=== PATIENT | female | born 1935 | race Caucasian/White ===

== ENCOUNTER 2020-07-31 05:16 | Inpatient (IN) | payer OTHER, MEDICAID, SELFPAY ==
[~2020-07-31] VITALS: Ht 170.2 cm; Wt 58.7 kg
[2020-07-31] VITALS (7 sets, daily range): BP systolic 122–180
[2020-07-31] MEDS ORDERED: VANCOMYCIN HCL 1,000 MG in D5W 250 ML IV ONE (05:45)
[2020-07-31] MEDS ORDERED: NS 1000 ML IV.SOLN IV ONE (05:45)
[2020-07-31] MEDS ORDERED: PIPERACILLIN/TAZO 3.38 GM in D5W 50 ML IV ONE (05:45)
[2020-07-31] MEDS ORDERED: ONDANSETRON HCL 4 MG/2 ML VIAL IVP ONE (05:45)
[2020-07-31] MEDS ORDERED: fentaNYL CITRATE/PF 100 MCG/2 ML AMP IVP ONE (05:45)
[2020-07-31] MEDS ORDERED: PIPERACILLIN/TAZOBACTAM 3.375 GM/VIAL (ZOSYN) IV ONE (05:46)
[2020-07-31] MEDS ORDERED: VANCOMYCIN HCL 1000 MG/VIAL IV ONE (05:46)
[2020-07-31 05:50] LABS: BILIRUBIN,URINE NEGATIVE (NEGATIVE); BLOOD, URINE NEGATIVE (NEGATIVE); CLARITY/URINE CLEAR (CLEAR); COLOR,URINE YELLOW (YELLOW); GLUCOSE,URINE NEGATIVE (NEGATIVE); KETONES,URINE NEGATIVE (NEGATIVE); LEUKOCYTE ESTERASE ,URINE NEGATIVE (NEGATIVE); NITRITE, URINE NEGATIVE (NEGATIVE); PROTEIN URINE 1+ (NEGATIVE); UROBILINOGEN,URINE 0.2 (0.2-1.0)
[2020-07-31 05:58] LABS: ANION GAP 5 (5-15); BASOPHILS % (AUTO) 0.4 % (0.0-2.0); CALCIUM 7.8 mg/dL (8.4-11.0); CHLORIDE 105 mmol/L (98-107); CREATININE 1.35 mg/dL (0.55-1.30); EOSINOPHILS # (AUTO) 0.3 K/uL (0.0-0.4); EOSINOPHILS % (AUTO) 3.9 % (0.0-4.0); GLUCOSE 280 mg/dL (70-99); HEMATOCRIT 38.1 % (36-48); HEMOGLOBIN 12.4 g/dL (12.0-16.0); LYMPHOCYTES # (AUTO) 0.9 K/uL (1.0-5.5); LYMPHOCYTES % (AUTO) 11.3 % (20.5-51.5); MEAN CORPUSCULAR HEMOGLOBIN 31 pg (27-31); MEAN CORPUSCULAR HGB CONC 33 % (32-36); MEAN CORPUSCULAR VOLUME 94 fL (79.0-98.0); MONOCYTES # (AUTO) 0.7 K/uL (0.0-1.0); MONOCYTES % (AUTO) 8.4 % (1.7-9.3); NEUTROPHILS # (AUTO) 6.3 K/uL (1.8-7.7); PLATELET COUNT (AUTO) 126 K/uL (130-430); POTASSIUM 4.8 mmol/L (3.5-5.1); RED BLOOD CELL COUNT(AUTO) 4.04 MIL/uL (4.2-6.2); RED CELL DISTRIBUTION WIDTH 14.8 % (9.0-15.0); SODIUM SERUM 141 mmol/L (136-145); UREA NITROGEN, BLOOD 39 mg/dL (8-21); WHITE BLOOD COUNT (AUTO) 8.3 K/uL (4.8-10.8)
[2020-07-31 05:58] LABS: BACTERIA,URINE FEW /HPF (None Seen); RBC,URINE 0-3 /HPF (0-3); WBC,URINE 0-3 /HPF (0-3)
[2020-07-31 06:04] LABS: ALANINE AMINOTRANSFERASE 24 U/L (12-78); ALBUMIN 2.8 g/dL (3.4-4.8); ASPARTATE AMINOTRANSFERASE 23 U/L (10-37); TOTAL BILIRUBIN 0.5 mg/dL (0.0-1.0)
[2020-07-31 06:05] LABS: INR 1.2 (0.8-1.2); PROTHROMBIN TIME 12.5 SECS (9.5-12.5)
[2020-07-31] MEDS ORDERED: NS 500 ML IV ONE (06:45)
[2020-07-31] MEDS ORDERED: FUROSEMIDE 40 MG/4 ML VIAL IVP ONE (07:15)
[2020-07-31] MEDS ORDERED: DIGO125T PO (11:06)
[2020-07-31] MEDS ORDERED: CARV25TA55 PO (11:06)
[2020-07-31] MEDS ORDERED: BENA20TA75 PO (11:06)
[2020-07-31] MEDS ORDERED: FURO-150 PO (11:06)
[2020-07-31] MEDS ORDERED: SER25 PO (11:06)
[2020-07-31] MEDS ORDERED: DEXTROSE 50% JECT 50 ML DISP.SYRIN IVP PRN (11:15)
[2020-07-31] MEDS ORDERED: IPRATROPIUM BROM 0.5 MG/2.5 ML VIAL.NEB (ATROVENT) INH PRN (11:30)
[2020-07-31] MEDS ORDERED: ALBUTEROL SULFATE 0.083% 2.5 MG/3 ML VIAL.NEB INH PRN (11:30)
[2020-07-31 11:49] LABS: THYROID STIMULATING HORMONE 0.93 uIu/mL (0.36-3.74)
[2020-07-31] MEDS: FUROSEMIDE 40 MG/4 ML VIAL IVP SCH (14:03)
[2020-07-31] MEDS: IPRATROPIUM BROM 0.5 MG/2.5 ML VIAL.NEB (ATROVENT) INH SCH ×3 (15:44→23:36)
[2020-07-31] MEDS: ALBUTEROL SULFATE 0.083% 2.5 MG/3 ML VIAL.NEB INH SCH ×3 (15:44→23:36)
[2020-07-31] MEDS ORDERED: DIVA-74 PO ×2 (16:01)
[2020-07-31] MEDS ORDERED: ALPR1TAB2 PO (16:02)
[2020-07-31] MEDS: INSULIN REGULAR, HUMAN 100 UNITS/ML, 10 ML VIAL (humuLIN R) SUBCUT PRN (17:24)
[2020-07-31] MEDS ORDERED: QUEtiapine FUMARATE 25 MG TABLET PO SCH (21:00)
[2020-07-31] MEDS: CARVEDILOL 25 MG TABLET (COREG) PO SCH (22:00)
[2020-07-31] MEDS: QUEtiapine FUMARATE 100 MG TABLET PO SCH (22:00)
[2020-07-31] MEDS: DIVALPROEX SODIUM 500 MG TABLET( DEPAKOTE) PO SCH (22:00)
[2020-08-01 00:10] VITALS: BP_SYST 122
[2020-08-01] MEDS: INSULIN REGULAR, HUMAN 100 UNITS/ML, 10 ML VIAL (humuLIN R) SUBCUT PRN ×3 (00:13→13:22)
[2020-08-01] MEDS: IPRATROPIUM BROM 0.5 MG/2.5 ML VIAL.NEB (ATROVENT) INH SCH ×6 (03:00→22:44)
[2020-08-01] MEDS: ALBUTEROL SULFATE 0.083% 2.5 MG/3 ML VIAL.NEB INH SCH ×6 (03:00→22:44)
[2020-08-01 06:31] LABS: BASOPHILS % (AUTO) 0.4 % (0.0-2.0); EOSINOPHILS # (AUTO) 0.3 K/uL (0.0-0.4); EOSINOPHILS % (AUTO) 4.1 % (0.0-4.0); HEMATOCRIT 34.5 % (36-48); HEMOGLOBIN 11.4 g/dL (12.0-16.0); LYMPHOCYTES # (AUTO) 1.8 K/uL (1.0-5.5); LYMPHOCYTES % (AUTO) 29.4 % (20.5-51.5); MEAN CORPUSCULAR HEMOGLOBIN 31 pg (27-31); MEAN CORPUSCULAR HGB CONC 33 % (32-36); MEAN CORPUSCULAR VOLUME 94 fL (79.0-98.0); MONOCYTES # (AUTO) 0.6 K/uL (0.0-1.0); MONOCYTES % (AUTO) 9.7 % (1.7-9.3); NEUTROPHILS # (AUTO) 3.5 K/uL (1.8-7.7); NEUTROPHILS % (AUTO) 56.4 % (40.0-70.0); PLATELET COUNT (AUTO) 115 K/uL (130-430); RED BLOOD CELL COUNT(AUTO) 3.67 MIL/uL (4.2-6.2); WHITE BLOOD COUNT (AUTO) 6.3 K/uL (4.8-10.8)
[2020-08-01 07:43] LABS: ALANINE AMINOTRANSFERASE 25 U/L (12-78); ALBUMIN 2.7 g/dL (3.4-4.8); ANION GAP 6 (5-15); ASPARTATE AMINOTRANSFERASE 21 U/L (10-37); CALCIUM 7.8 mg/dL (8.4-11.0); CHLORIDE 107 mmol/L (98-107); CREATININE 1.55 mg/dL (0.55-1.30); GLUCOSE 87 mg/dL (70-99); POTASSIUM 4.7 mmol/L (3.5-5.1); SODIUM SERUM 145 mmol/L (136-145); TOTAL BILIRUBIN 0.4 mg/dL (0.0-1.0); UREA NITROGEN, BLOOD 39 mg/dL (8-21)
[2020-08-01 08:34] VITALS: BP_SYST 139
[2020-08-01] MEDS: DIVALPROEX SODIUM 500 MG TABLET( DEPAKOTE) PO SCH ×2 (08:50→20:42)
[2020-08-01] MEDS: lisinopriL 20 MG TABLET PO SCH (08:50)
[2020-08-01] MEDS: CARVEDILOL 25 MG TABLET (COREG) PO SCH ×2 (08:50→20:43)
[2020-08-01] MEDS: DIGOXIN 0.125 MG TABLET PO SCH (08:51)
[2020-08-01] MEDS: QUEtiapine FUMARATE 25 MG TABLET PO SCH (08:51)
[2020-08-01 08:53] LABS: VALPROIC ACID 30 ug/mL (50-100)
[2020-08-01] MEDS: FUROSEMIDE 40 MG/4 ML VIAL IVP SCH ×2 (08:54→13:23)
[2020-08-01 12:18] VITALS: BP_SYST 136
[2020-08-01 16:20] VITALS: BP_SYST 139
[2020-08-01] MEDS ORDERED: LORazepam 2 MG/ML VIAL ONE (16:20)
[2020-08-01] MEDS: LORazepam 2 MG/ML VIAL IVP PRN ×2 (16:20→22:50)
[2020-08-01 20:40] VITALS: BP_SYST 146
[2020-08-01] MEDS: QUEtiapine FUMARATE 100 MG TABLET PO SCH (20:42)
[2020-08-02 02:00] VITALS: BP_SYST 136
[2020-08-02] MEDS: IPRATROPIUM BROM 0.5 MG/2.5 ML VIAL.NEB (ATROVENT) INH SCH ×6 (03:00→23:00)
[2020-08-02] MEDS: ALBUTEROL SULFATE 0.083% 2.5 MG/3 ML VIAL.NEB INH SCH ×6 (03:00→23:00)
[2020-08-02 04:25] VITALS: BP_SYST 141
[2020-08-02 08:00] VITALS: BP_SYST 123
[2020-08-02] MEDS: FUROSEMIDE 40 MG/4 ML VIAL IVP SCH ×2 (08:20→12:24)
[2020-08-02] MEDS: CARVEDILOL 25 MG TABLET (COREG) PO SCH ×2 (08:21→22:30)
[2020-08-02] MEDS: DIVALPROEX SODIUM 500 MG TABLET( DEPAKOTE) PO SCH ×2 (08:22→22:26)
[2020-08-02] MEDS: QUEtiapine FUMARATE 25 MG TABLET PO SCH (08:22)
[2020-08-02] MEDS: lisinopriL 20 MG TABLET PO SCH (08:22)
[2020-08-02] MEDS: DIGOXIN 0.125 MG TABLET PO SCH ×2 (08:23→12:25)
[2020-08-02 12:14] VITALS: BP_SYST 141
[2020-08-02] MEDS: INSULIN REGULAR, HUMAN 100 UNITS/ML, 10 ML VIAL (humuLIN R) SUBCUT PRN (12:30)
[2020-08-02 12:33] LABS: CALCIUM 7.8 mg/dL (8.4-11.0); CHLORIDE 106 mmol/L (98-107); CREATININE 1.27 mg/dL (0.55-1.30); GLUCOSE 214 mg/dL (70-99); POTASSIUM 5.2 mmol/L (3.5-5.1); SODIUM SERUM 143 mmol/L (136-145); UREA NITROGEN, BLOOD 43 mg/dL (8-21)
[2020-08-02 12:40] LABS: ANION GAP 3 (5-15)
[2020-08-02 16:15] VITALS: BP_SYST 151
[2020-08-02 20:00] VITALS: BP_SYST 146
[2020-08-02] MEDS: QUEtiapine FUMARATE 100 MG TABLET PO SCH (22:26)
[2020-08-03 00:16] VITALS: BP_SYST 151
[2020-08-03] MEDS: INSULIN REGULAR, HUMAN 100 UNITS/ML, 10 ML VIAL (humuLIN R) SUBCUT PRN (00:53)
[2020-08-03] MEDS: ALBUTEROL SULFATE 0.083% 2.5 MG/3 ML VIAL.NEB INH SCH ×6 (03:00→23:00)
[2020-08-03] MEDS: IPRATROPIUM BROM 0.5 MG/2.5 ML VIAL.NEB (ATROVENT) INH SCH ×6 (03:00→23:00)
[2020-08-03 06:03] LABS: BASOPHILS % (AUTO) 0.4 % (0.0-2.0); EOSINOPHILS # (AUTO) 0.3 K/uL (0.0-0.4); EOSINOPHILS % (AUTO) 4.8 % (0.0-4.0); HEMATOCRIT 35.7 % (36-48); HEMOGLOBIN 11.7 g/dL (12.0-16.0); LYMPHOCYTES # (AUTO) 1.4 K/uL (1.0-5.5); LYMPHOCYTES % (AUTO) 19.1 % (20.5-51.5); MEAN CORPUSCULAR HEMOGLOBIN 31 pg (27-31); MEAN CORPUSCULAR HGB CONC 33 % (32-36); MEAN CORPUSCULAR VOLUME 94 fL (79.0-98.0); MONOCYTES # (AUTO) 0.6 K/uL (0.0-1.0); MONOCYTES % (AUTO) 8.6 % (1.7-9.3); NEUTROPHILS # (AUTO) 4.9 K/uL (1.8-7.7); NEUTROPHILS % (AUTO) 67.1 % (40.0-70.0); PLATELET COUNT (AUTO) 136 K/uL (130-430); RED BLOOD CELL COUNT(AUTO) 3.79 MIL/uL (4.2-6.2); RED CELL DISTRIBUTION WIDTH 14.4 % (9.0-15.0); WHITE BLOOD COUNT (AUTO) 7.3 K/uL (4.8-10.8)
[2020-08-03 06:24] LABS: ALANINE AMINOTRANSFERASE 20 U/L (12-78); ALBUMIN 2.4 g/dL (3.4-4.8); ANION GAP 2 (5-15); ASPARTATE AMINOTRANSFERASE 21 U/L (10-37); CHLORIDE 106 mmol/L (98-107); CREATININE 1.31 mg/dL (0.55-1.30); GLUCOSE 114 mg/dL (70-99); POTASSIUM 4.7 mmol/L (3.5-5.1); SODIUM SERUM 145 mmol/L (136-145); TOTAL BILIRUBIN 0.4 mg/dL (0.0-1.0); UREA NITROGEN, BLOOD 43 mg/dL (8-21)
[2020-08-03 08:00] VITALS: BP_SYST 133
[2020-08-03] MEDS: FUROSEMIDE 40 MG/4 ML VIAL IVP SCH ×2 (09:02→12:25)
[2020-08-03] MEDS: QUEtiapine FUMARATE 25 MG TABLET PO SCH (09:03)
[2020-08-03] MEDS: CARVEDILOL 25 MG TABLET (COREG) PO SCH ×2 (09:03→21:28)
[2020-08-03] MEDS: DIGOXIN 0.125 MG TABLET PO SCH (09:03)
[2020-08-03] MEDS: lisinopriL 20 MG TABLET PO SCH (09:04)
[2020-08-03] MEDS: DIVALPROEX SODIUM 500 MG TABLET( DEPAKOTE) PO SCH ×2 (09:04→21:24)
[2020-08-03] MEDS: LORazepam 2 MG/ML VIAL IVP PRN ×2 (10:12→16:11)
[2020-08-03 12:28] VITALS: BP_SYST 150
[2020-08-03 16:12] VITALS: BP_SYST 148
[2020-08-03 20:00] VITALS: BP_SYST 158
[2020-08-03] MEDS: QUEtiapine FUMARATE 100 MG TABLET PO SCH (21:24)
[2020-08-03] MEDS: ALPRAZolam 0.25 MG TABLET PO SCH (21:24)
[2020-08-04] VITALS: BP_SYST 146
[2020-08-04] MEDS: IPRATROPIUM BROM 0.5 MG/2.5 ML VIAL.NEB (ATROVENT) INH SCH ×5 (03:00→19:55)
[2020-08-04] MEDS: ALBUTEROL SULFATE 0.083% 2.5 MG/3 ML VIAL.NEB INH SCH ×5 (03:00→19:55)
[2020-08-04 06:09] LABS: ALANINE AMINOTRANSFERASE 23 U/L (12-78); ALBUMIN 2.2 g/dL (3.4-4.8); ASPARTATE AMINOTRANSFERASE 20 U/L (10-37); CALCIUM 8.1 mg/dL (8.4-11.0); CHLORIDE 107 mmol/L (98-107); CREATININE 1.25 mg/dL (0.55-1.30); GLUCOSE 126 mg/dL (70-99); POTASSIUM 4.6 mmol/L (3.5-5.1); SODIUM SERUM 146 mmol/L (136-145); TOTAL BILIRUBIN 0.4 mg/dL (0.0-1.0); UREA NITROGEN, BLOOD 46 mg/dL (8-21)
[2020-08-04 06:25] LABS: ANION GAP < 3 (5-15)
[2020-08-04 06:37] LABS: BASOPHILS % (AUTO) 0.6 % (0.0-2.0); EOSINOPHILS # (AUTO) 0.2 K/uL (0.0-0.4); EOSINOPHILS % (AUTO) 4.1 % (0.0-4.0); HEMATOCRIT 35.6 % (36-48); HEMOGLOBIN 11.7 g/dL (12.0-16.0); LYMPHOCYTES # (AUTO) 1.4 K/uL (1.0-5.5); LYMPHOCYTES % (AUTO) 23.5 % (20.5-51.5); MEAN CORPUSCULAR HEMOGLOBIN 31 pg (27-31); MEAN CORPUSCULAR HGB CONC 33 % (32-36); MEAN CORPUSCULAR VOLUME 94 fL (79.0-98.0); MONOCYTES # (AUTO) 0.5 K/uL (0.0-1.0); MONOCYTES % (AUTO) 9.2 % (1.7-9.3); NEUTROPHILS # (AUTO) 3.7 K/uL (1.8-7.7); NEUTROPHILS % (AUTO) 62.6 % (40.0-70.0); PLATELET COUNT (AUTO) 125 K/uL (130-430); RED CELL DISTRIBUTION WIDTH 14.5 % (9.0-15.0); WHITE BLOOD COUNT (AUTO) 5.9 K/uL (4.8-10.8)
[2020-08-04 08:00] VITALS: BP_SYST 162
[2020-08-04] MEDS: FUROSEMIDE 40 MG/4 ML VIAL IVP SCH ×2 (09:12→12:21)
[2020-08-04] MEDS: CARVEDILOL 25 MG TABLET (COREG) PO SCH ×2 (09:13→20:22)
[2020-08-04] MEDS: DIVALPROEX SODIUM 500 MG TABLET( DEPAKOTE) PO SCH ×2 (09:14→20:22)
[2020-08-04] MEDS: DIGOXIN 0.125 MG TABLET PO SCH (09:14)
[2020-08-04] MEDS: lisinopriL 20 MG TABLET PO SCH (09:15)
[2020-08-04] MEDS: QUEtiapine FUMARATE 25 MG TABLET PO SCH (09:15)
[2020-08-04] MEDS: ALPRAZolam 0.25 MG TABLET PO SCH (09:16)
[2020-08-04 12:50] VITALS: BP_SYST 155
[2020-08-04 16:00] VITALS: BP_SYST 167
[2020-08-04 20:00] VITALS: BP_SYST 166
[2020-08-04] MEDS: QUEtiapine FUMARATE 100 MG TABLET PO SCH (20:21)
[2020-08-04] MEDS: INSULIN REGULAR, HUMAN 100 UNITS/ML, 10 ML VIAL (humuLIN R) SUBCUT PRN (23:39)
[2020-08-05] VITALS: BP_SYST 160
[2020-08-05] MEDS: INSULIN REGULAR, HUMAN 100 UNITS/ML, 10 ML VIAL (humuLIN R) SUBCUT PRN ×3 (05:13→17:40)
[2020-08-05 08:04] VITALS: BP_SYST 149
[2020-08-05] MEDS: ALBUTEROL SULFATE 0.083% 2.5 MG/3 ML VIAL.NEB INH SCH ×3 (08:09→15:24)
[2020-08-05] MEDS: IPRATROPIUM BROM 0.5 MG/2.5 ML VIAL.NEB (ATROVENT) INH SCH ×3 (08:09→15:24)
[2020-08-05] MEDS: FUROSEMIDE 40 MG/4 ML VIAL IVP SCH ×2 (08:12→11:19)
[2020-08-05] MEDS: lisinopriL 20 MG TABLET PO SCH (08:13)
[2020-08-05] MEDS: QUEtiapine FUMARATE 25 MG TABLET PO SCH (08:13)
[2020-08-05] MEDS: DIVALPROEX SODIUM 500 MG TABLET( DEPAKOTE) PO SCH ×2 (08:13→20:52)
[2020-08-05] MEDS: CARVEDILOL 25 MG TABLET (COREG) PO SCH ×2 (08:14→21:00)
[2020-08-05 10:33] LABS: HEMOGLOBIN A1C 7.5 % (4.8-5.6)
[2020-08-05 12:58] VITALS: BP_SYST 150
[2020-08-05 16:47] VITALS: BP_SYST 137
[2020-08-05 20:00] VITALS: BP_SYST 99
[2020-08-05] MEDS: QUEtiapine FUMARATE 100 MG TABLET PO SCH (20:52)
[2020-08-05] MEDS ORDERED: ALPRAZolam 0.25 MG TABLET PO ONE (22:00)
[2020-08-05] MEDS ORDERED: ALPRAZolam 0.25 MG TABLET ONE (22:08)
[2020-08-06] VITALS: BP_SYST 153
[2020-08-06] MEDS ORDERED: DIPHENHYDRAMINE INJ 50 MG/ML VIAL IVP ONE ×2 (03:30→06:00)
[2020-08-06] MEDS: INSULIN REGULAR, HUMAN 100 UNITS/ML, 10 ML VIAL (humuLIN R) SUBCUT PRN ×3 (06:08→17:29)
[2020-08-06 06:42] LABS: BASOPHILS % (AUTO) 0.3 % (0.0-2.0); EOSINOPHILS # (AUTO) 0.3 K/uL (0.0-0.4); EOSINOPHILS % (AUTO) 3.7 % (0.0-4.0); HEMATOCRIT 39.7 % (36-48); LYMPHOCYTES # (AUTO) 1.6 K/uL (1.0-5.5); LYMPHOCYTES % (AUTO) 23.4 % (20.5-51.5); MEAN CORPUSCULAR HEMOGLOBIN 31 pg (27-31); MEAN CORPUSCULAR HGB CONC 33 % (32-36); MEAN CORPUSCULAR VOLUME 94 fL (79.0-98.0); MONOCYTES # (AUTO) 0.5 K/uL (0.0-1.0); MONOCYTES % (AUTO) 7.6 % (1.7-9.3); NEUTROPHILS # (AUTO) 4.4 K/uL (1.8-7.7); PLATELET COUNT (AUTO) 157 K/uL (130-430); RED BLOOD CELL COUNT(AUTO) 4.24 MIL/uL (4.2-6.2); RED CELL DISTRIBUTION WIDTH 14.6 % (9.0-15.0); WHITE BLOOD COUNT (AUTO) 6.8 K/uL (4.8-10.8)
[2020-08-06 07:07] LABS: ALANINE AMINOTRANSFERASE 26 U/L (12-78); ALBUMIN 2.5 g/dL (3.4-4.8); ANION GAP 3 (5-15); ASPARTATE AMINOTRANSFERASE 27 U/L (10-37); CALCIUM 8.3 mg/dL (8.4-11.0); CHLORIDE 103 mmol/L (98-107); CREATININE 1.47 mg/dL (0.55-1.30); GLUCOSE 228 mg/dL (70-99); POTASSIUM 3.7 mmol/L (3.5-5.1); SODIUM SERUM 146 mmol/L (136-145); TOTAL BILIRUBIN 0.5 mg/dL (0.0-1.0); UREA NITROGEN, BLOOD 54 mg/dL (8-21)
[2020-08-06] MEDS: IPRATROPIUM BROM 0.5 MG/2.5 ML VIAL.NEB (ATROVENT) INH SCH ×4 (07:16→20:01)
[2020-08-06] MEDS: ALBUTEROL SULFATE 0.083% 2.5 MG/3 ML VIAL.NEB INH SCH ×4 (07:16→20:01)
[2020-08-06 08:00] VITALS: BP_SYST 154
[2020-08-06] MEDS: QUEtiapine FUMARATE 25 MG TABLET PO SCH (08:52)
[2020-08-06] MEDS: FUROSEMIDE 40 MG/4 ML VIAL IVP SCH ×2 (08:52→11:30)
[2020-08-06 08:53] VITALS: BP_SYST 153
[2020-08-06] MEDS: DIVALPROEX SODIUM 500 MG TABLET( DEPAKOTE) PO SCH ×2 (08:53→20:11)
[2020-08-06] MEDS: CARVEDILOL 25 MG TABLET (COREG) PO SCH ×2 (08:53→20:12)
[2020-08-06] MEDS: lisinopriL 20 MG TABLET PO SCH (08:53)
[2020-08-06] MEDS ORDERED: ALPRAZolam 0.25 MG TABLET PO ONE (10:15)
[2020-08-06] MEDS ORDERED: DIPHENHYDRAMINE INJ 50 MG/ML VIAL IVP PRN (10:15)
[2020-08-06] MEDS ORDERED: DOCUSATE SODIUM 100 MG CAPSULE PO ONE ×2 (11:45→18:06)
[2020-08-06 12:20] VITALS: BP_SYST 160
[2020-08-06 16:18] VITALS: BP_SYST 161
[2020-08-06 20:00] VITALS: BP_SYST 159
[2020-08-06] MEDS: QUEtiapine FUMARATE 100 MG TABLET PO SCH (20:11)
[2020-08-06] MEDS: ALPRAZolam 0.25 MG TABLET PO SCH (20:11)
[2020-08-07] MEDS: INSULIN REGULAR, HUMAN 100 UNITS/ML, 10 ML VIAL (humuLIN R) SUBCUT PRN ×2 (00:13→17:09)
[2020-08-07 01:38] VITALS: BP_SYST 103
[2020-08-07] MEDS: ALBUTEROL SULFATE 0.083% 2.5 MG/3 ML VIAL.NEB INH SCH ×5 (07:22→23:02)
[2020-08-07] MEDS: IPRATROPIUM BROM 0.5 MG/2.5 ML VIAL.NEB (ATROVENT) INH SCH ×5 (07:22→23:02)
[2020-08-07 09:14] VITALS: BP_SYST 151
[2020-08-07] MEDS: QUEtiapine FUMARATE 25 MG TABLET PO SCH (09:19)
[2020-08-07] MEDS: lisinopriL 20 MG TABLET PO SCH (09:19)
[2020-08-07] MEDS: FUROSEMIDE 40 MG/4 ML VIAL IVP SCH ×2 (09:19→12:43)
[2020-08-07] MEDS: DIVALPROEX SODIUM 500 MG TABLET( DEPAKOTE) PO SCH ×2 (09:20→21:31)
[2020-08-07] MEDS: CARVEDILOL 25 MG TABLET (COREG) PO SCH ×2 (09:20→21:31)
[2020-08-07] MEDS: ALPRAZolam 0.25 MG TABLET PO SCH ×2 (09:21→21:31)
[2020-08-07 12:58] VITALS: BP_SYST 146
[2020-08-07 16:39] VITALS: BP_SYST 150
[2020-08-07 20:00] VITALS: BP_SYST 141
[2020-08-07] MEDS: QUEtiapine FUMARATE 100 MG TABLET PO SCH (21:31)
[2020-08-08 00:38] VITALS: BP_SYST 129
[2020-08-08 07:47] VITALS: BP_SYST 153
[2020-08-08] MEDS: ALBUTEROL SULFATE 0.083% 2.5 MG/3 ML VIAL.NEB INH SCH ×5 (08:04→23:00)
[2020-08-08] MEDS: IPRATROPIUM BROM 0.5 MG/2.5 ML VIAL.NEB (ATROVENT) INH SCH ×5 (08:04→23:00)
[2020-08-08] MEDS: ALPRAZolam 0.25 MG TABLET PO SCH ×2 (08:45→21:34)
[2020-08-08] MEDS: FUROSEMIDE 40 MG/4 ML VIAL IVP SCH ×2 (08:45→12:07)
[2020-08-08] MEDS: DIVALPROEX SODIUM 500 MG TABLET( DEPAKOTE) PO SCH ×2 (08:46→21:35)
[2020-08-08] MEDS: QUEtiapine FUMARATE 25 MG TABLET PO SCH (08:46)
[2020-08-08] MEDS: lisinopriL 20 MG TABLET PO SCH (08:55)
[2020-08-08] MEDS: CARVEDILOL 25 MG TABLET (COREG) PO SCH ×2 (10:28→21:35)
[2020-08-08 10:29] VITALS: BP_SYST 157
[2020-08-08] MEDS: INSULIN REGULAR, HUMAN 100 UNITS/ML, 10 ML VIAL (humuLIN R) SUBCUT PRN ×2 (12:09→23:57)
[2020-08-08 12:16] VITALS: BP_SYST 147
[2020-08-08 16:34] VITALS: BP_SYST 126
[2020-08-08 20:06] VITALS: BP_SYST 130
[2020-08-08] MEDS: QUEtiapine FUMARATE 100 MG TABLET PO SCH (21:36)
[2020-08-09] VITALS (7 sets, daily range): BP systolic 102–143
[2020-08-09] MEDS: ALBUTEROL SULFATE 0.083% 2.5 MG/3 ML VIAL.NEB INH SCH ×6 (03:00→23:00)
[2020-08-09] MEDS: IPRATROPIUM BROM 0.5 MG/2.5 ML VIAL.NEB (ATROVENT) INH SCH ×6 (03:00→23:00)
[2020-08-09] MEDS: INSULIN REGULAR, HUMAN 100 UNITS/ML, 10 ML VIAL (humuLIN R) SUBCUT PRN ×3 (06:14→23:55)
[2020-08-09] MEDS: DIVALPROEX SODIUM 500 MG TABLET( DEPAKOTE) PO SCH ×2 (09:09→20:27)
[2020-08-09] MEDS: FUROSEMIDE 40 MG/4 ML VIAL IVP SCH (09:09)
[2020-08-09] MEDS: ALPRAZolam 0.25 MG TABLET PO SCH ×2 (09:10→20:26)
[2020-08-09] MEDS: lisinopriL 20 MG TABLET PO SCH (09:10)
[2020-08-09] MEDS: QUEtiapine FUMARATE 25 MG TABLET PO SCH (09:10)
[2020-08-09] MEDS: CARVEDILOL 25 MG TABLET (COREG) PO SCH ×2 (09:11→20:27)
[2020-08-09 11:33] LABS: BASOPHILS % (AUTO) 0.6 % (0.0-2.0); EOSINOPHILS # (AUTO) 0.2 K/uL (0.0-0.4); EOSINOPHILS % (AUTO) 3.6 % (0.0-4.0); HEMATOCRIT 37.4 % (36-48); HEMOGLOBIN 12.4 g/dL (12.0-16.0); LYMPHOCYTES # (AUTO) 1.8 K/uL (1.0-5.5); LYMPHOCYTES % (AUTO) 28.2 % (20.5-51.5); MEAN CORPUSCULAR HEMOGLOBIN 31 pg (27-31); MEAN CORPUSCULAR HGB CONC 33 % (32-36); MEAN CORPUSCULAR VOLUME 93 fL (79.0-98.0); MONOCYTES # (AUTO) 0.8 K/uL (0.0-1.0); MONOCYTES % (AUTO) 12.2 % (1.7-9.3); NEUTROPHILS # (AUTO) 3.6 K/uL (1.8-7.7); NEUTROPHILS % (AUTO) 55.4 % (40.0-70.0); PLATELET COUNT (AUTO) 141 K/uL (130-430); RED BLOOD CELL COUNT(AUTO) 4.02 MIL/uL (4.2-6.2); RED CELL DISTRIBUTION WIDTH 14.2 % (9.0-15.0); WHITE BLOOD COUNT (AUTO) 6.4 K/uL (4.8-10.8)
[2020-08-09 11:41] LABS: ANION GAP 3 (5-15); CALCIUM 7.9 mg/dL (8.4-11.0); CHLORIDE 98 mmol/L (98-107); CREATININE 1.66 mg/dL (0.55-1.30); GLUCOSE 98 mg/dL (70-99); POTASSIUM 3.7 mmol/L (3.5-5.1); SODIUM SERUM 140 mmol/L (136-145); UREA NITROGEN, BLOOD 54 mg/dL (8-21)
[2020-08-09 11:47] LABS: ALANINE AMINOTRANSFERASE 28 U/L (12-78); ALBUMIN 2.5 g/dL (3.4-4.8); ASPARTATE AMINOTRANSFERASE 33 U/L (10-37); TOTAL BILIRUBIN 0.4 mg/dL (0.0-1.0)
[2020-08-09] MEDS: FUROSEMIDE 40 MG TABLET PO SCH (17:17)
[2020-08-09] MEDS: QUEtiapine FUMARATE 100 MG TABLET PO SCH (20:26)
[2020-08-10] VITALS: BP_SYST 132
[2020-08-10] MEDS: ALBUTEROL SULFATE 0.083% 2.5 MG/3 ML VIAL.NEB INH SCH ×6 (03:00→23:00)
[2020-08-10] MEDS: IPRATROPIUM BROM 0.5 MG/2.5 ML VIAL.NEB (ATROVENT) INH SCH ×6 (03:00→23:00)
[2020-08-10] MEDS: FUROSEMIDE 40 MG TABLET PO SCH ×2 (05:50→18:28)
[2020-08-10 08:00] VITALS: BP_SYST 146
[2020-08-10] MEDS: DIVALPROEX SODIUM 500 MG TABLET( DEPAKOTE) PO SCH ×2 (09:43→21:00)
[2020-08-10] MEDS: ALPRAZolam 0.25 MG TABLET PO SCH ×2 (09:44→21:01)
[2020-08-10] MEDS: QUEtiapine FUMARATE 25 MG TABLET PO SCH (09:44)
[2020-08-10] MEDS: CARVEDILOL 25 MG TABLET (COREG) PO SCH ×2 (09:45→21:01)
[2020-08-10] MEDS: lisinopriL 20 MG TABLET PO SCH (09:45)
[2020-08-10 11:40] VITALS: BP_SYST 123
[2020-08-10] MEDS: INSULIN REGULAR, HUMAN 100 UNITS/ML, 10 ML VIAL (humuLIN R) SUBCUT PRN ×3 (11:51→23:26)
[2020-08-10 15:21] VITALS: BP_SYST 116
[2020-08-10 20:00] VITALS: BP_SYST 149
[2020-08-10] MEDS: QUEtiapine FUMARATE 100 MG TABLET PO SCH (21:00)
[2020-08-11] VITALS: BP_SYST 144
[2020-08-11] MEDS: IPRATROPIUM BROM 0.5 MG/2.5 ML VIAL.NEB (ATROVENT) INH SCH ×5 (03:00→20:04)
[2020-08-11] MEDS: ALBUTEROL SULFATE 0.083% 2.5 MG/3 ML VIAL.NEB INH SCH ×5 (03:00→20:04)
[2020-08-11] MEDS: FUROSEMIDE 40 MG TABLET PO SCH ×2 (05:12→18:04)
[2020-08-11 08:00] VITALS: BP_SYST 128
[2020-08-11] MEDS: QUEtiapine FUMARATE 25 MG TABLET PO SCH (09:43)
[2020-08-11] MEDS: CARVEDILOL 25 MG TABLET (COREG) PO SCH ×2 (09:44→20:43)
[2020-08-11] MEDS: lisinopriL 20 MG TABLET PO SCH (09:44)
[2020-08-11] MEDS: DIVALPROEX SODIUM 500 MG TABLET( DEPAKOTE) PO SCH ×2 (09:45→20:43)
[2020-08-11 11:35] VITALS: BP_SYST 113
[2020-08-11] MEDS: INSULIN REGULAR, HUMAN 100 UNITS/ML, 10 ML VIAL (humuLIN R) SUBCUT PRN ×2 (11:38→23:35)
[2020-08-11] MEDS: BALSAM PERU/CASTOR OIL 60 GM OINT...G. TP SCH (12:15)
[2020-08-11 15:31] VITALS: BP_SYST 121
[2020-08-11 20:00] VITALS: BP_SYST 149
[2020-08-11] MEDS: QUEtiapine FUMARATE 100 MG TABLET PO SCH (20:43)
[2020-08-11] MEDS: ALPRAZolam 0.25 MG TABLET PO SCH (20:43)
[2020-08-12] VITALS: BP_SYST 144
[2020-08-12] MEDS: FUROSEMIDE 40 MG TABLET PO SCH ×2 (05:23→17:34)
[2020-08-12] MEDS: INSULIN REGULAR, HUMAN 100 UNITS/ML, 10 ML VIAL (humuLIN R) SUBCUT PRN ×3 (05:25→17:32)
[2020-08-12] MEDS: ALBUTEROL SULFATE 0.083% 2.5 MG/3 ML VIAL.NEB INH SCH ×5 (07:38→23:00)
[2020-08-12] MEDS: IPRATROPIUM BROM 0.5 MG/2.5 ML VIAL.NEB (ATROVENT) INH SCH ×5 (07:38→23:00)
[2020-08-12] MEDS: DIVALPROEX SODIUM 500 MG TABLET( DEPAKOTE) PO SCH ×2 (09:03→20:17)
[2020-08-12] MEDS: QUEtiapine FUMARATE 25 MG TABLET PO SCH (09:03)
[2020-08-12] MEDS: BALSAM PERU/CASTOR OIL 60 GM OINT...G. TP SCH (09:04)
[2020-08-12] MEDS: CARVEDILOL 25 MG TABLET (COREG) PO SCH ×2 (09:04→20:18)
[2020-08-12] MEDS: lisinopriL 20 MG TABLET PO SCH (09:04)
[2020-08-12 12:00] VITALS: BP_SYST 131
[2020-08-12 16:00] VITALS: BP_SYST 122
[2020-08-12 19:55] VITALS: BP_SYST 137
[2020-08-12] MEDS: QUEtiapine FUMARATE 100 MG TABLET PO SCH (20:17)
[2020-08-12] MEDS: ALPRAZolam 0.25 MG TABLET PO SCH (20:17)
[2020-08-13] VITALS: BP_SYST 136
[2020-08-13] MEDS: INSULIN REGULAR, HUMAN 100 UNITS/ML, 10 ML VIAL (humuLIN R) SUBCUT PRN ×4 (00:14→23:45)
[2020-08-13] MEDS: IPRATROPIUM BROM 0.5 MG/2.5 ML VIAL.NEB (ATROVENT) INH SCH ×6 (03:00→23:30)
[2020-08-13] MEDS: ALBUTEROL SULFATE 0.083% 2.5 MG/3 ML VIAL.NEB INH SCH ×6 (03:00→23:30)
[2020-08-13] MEDS: FUROSEMIDE 40 MG TABLET PO SCH ×2 (05:51→18:28)
[2020-08-13 07:49] VITALS: BP_SYST 124
[2020-08-13] MEDS: DIVALPROEX SODIUM 500 MG TABLET( DEPAKOTE) PO SCH ×2 (09:38→21:05)
[2020-08-13] MEDS: QUEtiapine FUMARATE 25 MG TABLET PO SCH (09:38)
[2020-08-13] MEDS: lisinopriL 20 MG TABLET PO SCH (09:39)
[2020-08-13] MEDS: CARVEDILOL 25 MG TABLET (COREG) PO SCH ×2 (09:39→21:07)
[2020-08-13] MEDS: BALSAM PERU/CASTOR OIL 60 GM OINT...G. TP SCH (09:41)
[2020-08-13 11:12] VITALS: BP_SYST 122
[2020-08-13 16:00] VITALS: BP_SYST 140
[2020-08-13 19:45] VITALS: BP_SYST 118
[2020-08-13] MEDS: QUEtiapine FUMARATE 100 MG TABLET PO SCH (21:05)
[2020-08-13] MEDS: MUPIROCIN 1 GM OIN.PF.APP NS SCH (21:05)
[2020-08-13] MEDS: ALPRAZolam 0.25 MG TABLET PO SCH (21:05)
[2020-08-13 23:41] VITALS: BP_SYST 135
[2020-08-14] MEDS: ALBUTEROL SULFATE 0.083% 2.5 MG/3 ML VIAL.NEB INH SCH ×6 (03:00→23:00)
[2020-08-14] MEDS: IPRATROPIUM BROM 0.5 MG/2.5 ML VIAL.NEB (ATROVENT) INH SCH ×6 (03:00→23:00)
[2020-08-14] MEDS: FUROSEMIDE 40 MG TABLET PO SCH ×2 (05:04→17:37)
[2020-08-14 08:00] VITALS: BP_SYST 122
[2020-08-14] MEDS: MUPIROCIN 1 GM OIN.PF.APP NS SCH ×2 (09:45→21:21)
[2020-08-14] MEDS: lisinopriL 20 MG TABLET PO SCH (09:46)
[2020-08-14] MEDS: DIVALPROEX SODIUM 500 MG TABLET( DEPAKOTE) PO SCH (09:46)
[2020-08-14] MEDS: CARVEDILOL 25 MG TABLET (COREG) PO SCH ×2 (09:46→21:07)
[2020-08-14] MEDS: QUEtiapine FUMARATE 25 MG TABLET PO SCH (09:46)
[2020-08-14] MEDS: BALSAM PERU/CASTOR OIL 60 GM OINT...G. TP SCH (09:47)
[2020-08-14] MEDS: INSULIN REGULAR, HUMAN 100 UNITS/ML, 10 ML VIAL (humuLIN R) SUBCUT PRN ×3 (11:19→23:37)
[2020-08-14 12:00] VITALS: BP_SYST 119
[2020-08-14 17:00] VITALS: BP_SYST 138
[2020-08-14 20:30] VITALS: BP_SYST 141
[2020-08-14] MEDS: QUEtiapine FUMARATE 100 MG TABLET PO SCH (21:05)
[2020-08-14] MEDS: DIVALPROEX SODIUM 250 MG TABLET(DEPAKOTE) PO SCH (21:06)
[2020-08-14] MEDS: ALPRAZolam 0.25 MG TABLET PO SCH (21:08)
[2020-08-15 00:15] VITALS: BP_SYST 138
[2020-08-15] MEDS: ALBUTEROL SULFATE 0.083% 2.5 MG/3 ML VIAL.NEB INH SCH ×6 (03:00→23:00)
[2020-08-15] MEDS: IPRATROPIUM BROM 0.5 MG/2.5 ML VIAL.NEB (ATROVENT) INH SCH ×6 (03:00→23:00)
[2020-08-15] MEDS: FUROSEMIDE 40 MG TABLET PO SCH ×2 (06:29→17:15)
[2020-08-15] MEDS: INSULIN REGULAR, HUMAN 100 UNITS/ML, 10 ML VIAL (humuLIN R) SUBCUT PRN ×3 (06:32→17:43)
[2020-08-15 08:00] VITALS: BP_SYST 102
[2020-08-15 08:48] VITALS: BP_SYST 140
[2020-08-15] MEDS: CARVEDILOL 25 MG TABLET (COREG) PO SCH ×2 (09:00→21:36)
[2020-08-15] MEDS: MUPIROCIN 1 GM OIN.PF.APP NS SCH ×2 (09:00→21:36)
[2020-08-15] MEDS: QUEtiapine FUMARATE 25 MG TABLET PO SCH (09:36)
[2020-08-15] MEDS: DIVALPROEX SODIUM 250 MG TABLET(DEPAKOTE) PO SCH ×2 (09:37→21:24)
[2020-08-15] MEDS: lisinopriL 20 MG TABLET PO SCH (09:38)
[2020-08-15] MEDS: BALSAM PERU/CASTOR OIL 60 GM OINT...G. TP SCH (09:39)
[2020-08-15 11:29] VITALS: BP_SYST 147
[2020-08-15 16:05] VITALS: BP_SYST 134
[2020-08-15 20:00] VITALS: BP_SYST 142
[2020-08-15] MEDS: QUEtiapine FUMARATE 100 MG TABLET PO SCH ×2 (21:23)
[2020-08-15] MEDS: ALPRAZolam 0.25 MG TABLET PO SCH (21:24)
[2020-08-16] MEDS: INSULIN REGULAR, HUMAN 100 UNITS/ML, 10 ML VIAL (humuLIN R) SUBCUT PRN ×4 (00:19→23:29)
[2020-08-16 00:39] VITALS: BP_SYST 148
[2020-08-16] MEDS: ALBUTEROL SULFATE 0.083% 2.5 MG/3 ML VIAL.NEB INH SCH ×6 (03:00→23:00)
[2020-08-16] MEDS: IPRATROPIUM BROM 0.5 MG/2.5 ML VIAL.NEB (ATROVENT) INH SCH ×6 (03:00→23:00)
[2020-08-16] MEDS: FUROSEMIDE 40 MG TABLET PO SCH ×2 (05:20→17:37)
[2020-08-16 08:07] VITALS: BP_SYST 136
[2020-08-16] MEDS: QUEtiapine FUMARATE 25 MG TABLET PO SCH (09:10)
[2020-08-16] MEDS: DIVALPROEX SODIUM 250 MG TABLET(DEPAKOTE) PO SCH (09:10)
[2020-08-16] MEDS: BALSAM PERU/CASTOR OIL 60 GM OINT...G. TP SCH (09:12)
[2020-08-16] MEDS: lisinopriL 20 MG TABLET PO SCH (09:13)
[2020-08-16] MEDS: CARVEDILOL 25 MG TABLET (COREG) PO SCH ×2 (09:14→21:33)
[2020-08-16] MEDS: QUEtiapine FUMARATE 100 MG TABLET PO SCH ×2 (09:14→21:33)
[2020-08-16] MEDS: MUPIROCIN 1 GM OIN.PF.APP NS SCH ×2 (09:15→21:46)
[2020-08-16 12:13] VITALS: BP_SYST 114
[2020-08-16 16:02] VITALS: BP_SYST 108
[2020-08-16 20:00] VITALS: BP_SYST 142
[2020-08-16] MEDS: DIVALPROEX SODIUM 500 MG TABLET( DEPAKOTE) PO SCH (21:33)
[2020-08-17] VITALS: BP_SYST 121
[2020-08-17] MEDS: ALBUTEROL SULFATE 0.083% 2.5 MG/3 ML VIAL.NEB INH SCH ×6 (03:00→23:00)
[2020-08-17] MEDS: IPRATROPIUM BROM 0.5 MG/2.5 ML VIAL.NEB (ATROVENT) INH SCH ×7 (03:00→23:00)
[2020-08-17] MEDS: FUROSEMIDE 40 MG TABLET PO SCH ×2 (06:19→17:12)
[2020-08-17 07:50] VITALS: BP_SYST 134
[2020-08-17] MEDS: QUEtiapine FUMARATE 100 MG TABLET PO SCH ×2 (08:22→20:17)
[2020-08-17] MEDS: lisinopriL 20 MG TABLET PO SCH (08:22)
[2020-08-17] MEDS: DIVALPROEX SODIUM 250 MG TABLET(DEPAKOTE) PO SCH (08:23)
[2020-08-17] MEDS: CARVEDILOL 25 MG TABLET (COREG) PO SCH ×2 (08:23→20:17)
[2020-08-17] MEDS: MUPIROCIN 1 GM OIN.PF.APP NS SCH ×2 (08:23→20:19)
[2020-08-17] MEDS: BALSAM PERU/CASTOR OIL 60 GM OINT...G. TP SCH (08:28)
[2020-08-17 11:33] VITALS: BP_SYST 141
[2020-08-17] MEDS: INSULIN REGULAR, HUMAN 100 UNITS/ML, 10 ML VIAL (humuLIN R) SUBCUT PRN (11:53)
[2020-08-17 16:20] VITALS: BP_SYST 116
[2020-08-17 20:00] VITALS: BP_SYST 135
[2020-08-17] MEDS: DIVALPROEX SODIUM 500 MG TABLET( DEPAKOTE) PO SCH (20:18)
[2020-08-18 00:02] VITALS: BP_SYST 140
[2020-08-18] MEDS: INSULIN REGULAR, HUMAN 100 UNITS/ML, 10 ML VIAL (humuLIN R) SUBCUT PRN ×4 (00:27→23:36)
[2020-08-18] MEDS: IPRATROPIUM BROM 0.5 MG/2.5 ML VIAL.NEB (ATROVENT) INH SCH ×6 (03:00→23:00)
[2020-08-18] MEDS: ALBUTEROL SULFATE 0.083% 2.5 MG/3 ML VIAL.NEB INH SCH ×6 (03:00→23:00)
[2020-08-18] MEDS: FUROSEMIDE 40 MG TABLET PO SCH ×2 (06:04→17:25)
[2020-08-18 08:00] VITALS: BP_SYST 140
[2020-08-18 08:48] VITALS: BP_SYST 137
[2020-08-18] MEDS: QUEtiapine FUMARATE 100 MG TABLET PO SCH ×2 (09:32→20:54)
[2020-08-18] MEDS: lisinopriL 20 MG TABLET PO SCH (09:32)
[2020-08-18] MEDS: CARVEDILOL 25 MG TABLET (COREG) PO SCH ×2 (09:32→20:54)
[2020-08-18] MEDS: DIVALPROEX SODIUM 250 MG TABLET(DEPAKOTE) PO SCH (09:32)
[2020-08-18] MEDS: BALSAM PERU/CASTOR OIL 60 GM OINT...G. TP SCH (09:33)
[2020-08-18] MEDS: MUPIROCIN 1 GM OIN.PF.APP NS SCH (09:34)
[2020-08-18 12:08] LABS: BASOPHILS % (AUTO) 0.7 % (0.0-2.0); EOSINOPHILS # (AUTO) 0.2 K/uL (0.0-0.4); EOSINOPHILS % (AUTO) 4.3 % (0.0-4.0); HEMATOCRIT 32.9 % (36-48); LYMPHOCYTES # (AUTO) 1.3 K/uL (1.0-5.5); LYMPHOCYTES % (AUTO) 25.1 % (20.5-51.5); MEAN CORPUSCULAR HEMOGLOBIN 31 pg (27-31); MEAN CORPUSCULAR HGB CONC 34 % (32-36); MEAN CORPUSCULAR VOLUME 93 fL (79.0-98.0); MONOCYTES # (AUTO) 0.6 K/uL (0.0-1.0); MONOCYTES % (AUTO) 11.6 % (1.7-9.3); NEUTROPHILS % (AUTO) 58.3 % (40.0-70.0); PLATELET COUNT (AUTO) 118 K/uL (130-430); RED BLOOD CELL COUNT(AUTO) 3.54 MIL/uL (4.2-6.2); RED CELL DISTRIBUTION WIDTH 14.4 % (9.0-15.0); WHITE BLOOD COUNT (AUTO) 5.2 K/uL (4.8-10.8)
[2020-08-18 12:19] LABS: ANION GAP 3 (5-15); CALCIUM 8.2 mg/dL (8.4-11.0); CHLORIDE 100 mmol/L (98-107); CREATININE 1.56 mg/dL (0.55-1.30); GLUCOSE 246 mg/dL (70-99); POTASSIUM 4.9 mmol/L (3.5-5.1); SODIUM SERUM 136 mmol/L (136-145); UREA NITROGEN, BLOOD 49 mg/dL (8-21)
[2020-08-18 12:25] LABS: ALANINE AMINOTRANSFERASE 31 U/L (12-78); ALBUMIN 2.1 g/dL (3.4-4.8); ASPARTATE AMINOTRANSFERASE 28 U/L (10-37); TOTAL BILIRUBIN 0.3 mg/dL (0.0-1.0)
[2020-08-18 13:21] VITALS: BP_SYST 107
[2020-08-18 17:23] VITALS: BP_SYST 129
[2020-08-18 20:00] VITALS: BP_SYST 154
[2020-08-18] MEDS: DIVALPROEX SODIUM 500 MG TABLET( DEPAKOTE) PO SCH (20:53)
[2020-08-18] MEDS: MUPIROCIN 2% TOPICAL OINTMENT 22 GM NS SCH (21:00)
[2020-08-19] VITALS: BP_SYST 130
[2020-08-19] MEDS: IPRATROPIUM BROM 0.5 MG/2.5 ML VIAL.NEB (ATROVENT) INH SCH ×6 (03:00→23:00)
[2020-08-19] MEDS: ALBUTEROL SULFATE 0.083% 2.5 MG/3 ML VIAL.NEB INH SCH ×6 (03:00→23:00)
[2020-08-19] MEDS: FUROSEMIDE 40 MG TABLET PO SCH ×2 (05:13→18:50)
[2020-08-19 05:56] LABS: BASOPHILS % (AUTO) 0.5 % (0.0-2.0); EOSINOPHILS # (AUTO) 0.3 K/uL (0.0-0.4); EOSINOPHILS % (AUTO) 4.6 % (0.0-4.0); HEMATOCRIT 33.6 % (36-48); HEMOGLOBIN 11.3 g/dL (12.0-16.0); LYMPHOCYTES # (AUTO) 2.4 K/uL (1.0-5.5); LYMPHOCYTES % (AUTO) 32.8 % (20.5-51.5); MEAN CORPUSCULAR HEMOGLOBIN 31 pg (27-31); MEAN CORPUSCULAR HGB CONC 34 % (32-36); MEAN CORPUSCULAR VOLUME 92 fL (79.0-98.0); MONOCYTES # (AUTO) 0.9 K/uL (0.0-1.0); MONOCYTES % (AUTO) 12.7 % (1.7-9.3); NEUTROPHILS # (AUTO) 3.6 K/uL (1.8-7.7); NEUTROPHILS % (AUTO) 49.4 % (40.0-70.0); PLATELET COUNT (AUTO) 134 K/uL (130-430); RED BLOOD CELL COUNT(AUTO) 3.66 MIL/uL (4.2-6.2); RED CELL DISTRIBUTION WIDTH 14.3 % (9.0-15.0); WHITE BLOOD COUNT (AUTO) 7.3 K/uL (4.8-10.8)
[2020-08-19 06:14] LABS: ALANINE AMINOTRANSFERASE 31 U/L (12-78); ALBUMIN 2.3 g/dL (3.4-4.8); ANION GAP 5 (5-15); ASPARTATE AMINOTRANSFERASE 27 U/L (10-37); CALCIUM 8.1 mg/dL (8.4-11.0); CHLORIDE 103 mmol/L (98-107); CREATININE 1.48 mg/dL (0.55-1.30); GLUCOSE 85 mg/dL (70-99); POTASSIUM 4.8 mmol/L (3.5-5.1); SODIUM SERUM 139 mmol/L (136-145); TOTAL BILIRUBIN 0.4 mg/dL (0.0-1.0); UREA NITROGEN, BLOOD 47 mg/dL (8-21)
[2020-08-19 07:30] LABS: VALPROIC ACID 61 ug/mL (50-100)
[2020-08-19 08:50] VITALS: BP_SYST 114
[2020-08-19] MEDS: MUPIROCIN 2% TOPICAL OINTMENT 22 GM NS SCH ×2 (09:58→20:45)
[2020-08-19] MEDS: CARVEDILOL 25 MG TABLET (COREG) PO SCH ×2 (09:59→20:25)
[2020-08-19] MEDS: lisinopriL 20 MG TABLET PO SCH (09:59)
[2020-08-19] MEDS: QUEtiapine FUMARATE 100 MG TABLET PO SCH ×2 (09:59→20:18)
[2020-08-19] MEDS: DIVALPROEX SODIUM 250 MG TABLET(DEPAKOTE) PO SCH (09:59)
[2020-08-19] MEDS: BALSAM PERU/CASTOR OIL 60 GM OINT...G. TP SCH (10:00)
[2020-08-19] MEDS: INSULIN REGULAR, HUMAN 100 UNITS/ML, 10 ML VIAL (humuLIN R) SUBCUT PRN ×2 (11:48→18:52)
[2020-08-19 18:20] VITALS: BP_SYST 133
[2020-08-19 20:00] VITALS: BP_SYST 136
[2020-08-19] MEDS: DIVALPROEX SODIUM 500 MG TABLET( DEPAKOTE) PO SCH (20:18)
[2020-08-20] VITALS: BP_SYST 128
[2020-08-20] MEDS: INSULIN REGULAR, HUMAN 100 UNITS/ML, 10 ML VIAL (humuLIN R) SUBCUT PRN ×2 (00:08→12:06)
[2020-08-20] MEDS: IPRATROPIUM BROM 0.5 MG/2.5 ML VIAL.NEB (ATROVENT) INH SCH ×6 (03:00→23:00)
[2020-08-20] MEDS: ALBUTEROL SULFATE 0.083% 2.5 MG/3 ML VIAL.NEB INH SCH ×6 (03:00→23:00)
[2020-08-20] MEDS: FUROSEMIDE 40 MG TABLET PO SCH ×2 (06:11→06:20)
[2020-08-20] MEDS: QUEtiapine FUMARATE 100 MG TABLET PO SCH ×3 (09:16→20:06)
[2020-08-20] MEDS: CARVEDILOL 25 MG TABLET (COREG) PO SCH ×2 (09:17→20:06)
[2020-08-20] MEDS: lisinopriL 20 MG TABLET PO SCH (09:18)
[2020-08-20] MEDS: DIVALPROEX SODIUM 250 MG TABLET(DEPAKOTE) PO SCH (09:19)
[2020-08-20] MEDS: BALSAM PERU/CASTOR OIL 60 GM OINT...G. TP SCH (09:25)
[2020-08-20] MEDS: MUPIROCIN 2% TOPICAL OINTMENT 22 GM NS SCH ×2 (09:25→20:07)
[2020-08-20 12:03] VITALS: BP_SYST 128
[2020-08-20 16:00] VITALS: BP_SYST 121
[2020-08-20 20:05] VITALS: BP_SYST 127
[2020-08-20] MEDS: DIVALPROEX SODIUM 500 MG TABLET( DEPAKOTE) PO SCH (20:06)
[2020-08-21] VITALS: BP_SYST 126
[2020-08-21] MEDS: INSULIN REGULAR, HUMAN 100 UNITS/ML, 10 ML VIAL (humuLIN R) SUBCUT PRN ×3 (00:25→17:23)
[2020-08-21] MEDS: IPRATROPIUM BROM 0.5 MG/2.5 ML VIAL.NEB (ATROVENT) INH SCH ×5 (03:00→20:44)
[2020-08-21] MEDS: ALBUTEROL SULFATE 0.083% 2.5 MG/3 ML VIAL.NEB INH SCH ×5 (03:00→20:44)
[2020-08-21] MEDS: FUROSEMIDE 40 MG TABLET PO SCH ×2 (06:08→17:28)
[2020-08-21] MEDS: DIVALPROEX SODIUM 250 MG TABLET(DEPAKOTE) PO SCH (07:50)
[2020-08-21] MEDS: QUEtiapine FUMARATE 100 MG TABLET PO SCH ×4 (07:51→20:41)
[2020-08-21 08:14] LABS: BASOPHILS % (AUTO) 0.8 % (0.0-2.0); EOSINOPHILS # (AUTO) 0.3 K/uL (0.0-0.4); EOSINOPHILS % (AUTO) 5.3 % (0.0-4.0); HEMATOCRIT 33.3 % (36-48); HEMOGLOBIN 11.1 g/dL (12.0-16.0); LYMPHOCYTES # (AUTO) 1.5 K/uL (1.0-5.5); LYMPHOCYTES % (AUTO) 25.1 % (20.5-51.5); MEAN CORPUSCULAR HEMOGLOBIN 31 pg (27-31); MEAN CORPUSCULAR HGB CONC 33 % (32-36); MEAN CORPUSCULAR VOLUME 92 fL (79.0-98.0); MONOCYTES # (AUTO) 0.6 K/uL (0.0-1.0); MONOCYTES % (AUTO) 10.4 % (1.7-9.3); NEUTROPHILS # (AUTO) 3.6 K/uL (1.8-7.7); NEUTROPHILS % (AUTO) 58.4 % (40.0-70.0); PLATELET COUNT (AUTO) 117 K/uL (130-430); RED BLOOD CELL COUNT(AUTO) 3.64 MIL/uL (4.2-6.2); RED CELL DISTRIBUTION WIDTH 14.6 % (9.0-15.0); WHITE BLOOD COUNT (AUTO) 6.1 K/uL (4.8-10.8)
[2020-08-21 08:31] LABS: ANION GAP 4 (5-15); CHLORIDE 103 mmol/L (98-107); GLUCOSE 142 mg/dL (70-99); POTASSIUM 4.8 mmol/L (3.5-5.1); SODIUM SERUM 137 mmol/L (136-145); UREA NITROGEN, BLOOD 52 mg/dL (8-21)
[2020-08-21 08:39] VITALS: BP_SYST 103
[2020-08-21] MEDS: BALSAM PERU/CASTOR OIL 60 GM OINT...G. TP SCH (08:42)
[2020-08-21] MEDS: MUPIROCIN 2% TOPICAL OINTMENT 22 GM NS SCH ×2 (08:42→20:48)
[2020-08-21] MEDS: lisinopriL 20 MG TABLET PO SCH ×3 (08:43→09:00)
[2020-08-21] MEDS: CARVEDILOL 25 MG TABLET (COREG) PO SCH ×2 (08:43→20:42)
[2020-08-21 08:48] VITALS: BP_SYST 103
[2020-08-21 12:19] VITALS: BP_SYST 131
[2020-08-21 16:20] VITALS: BP_SYST 133
[2020-08-21 20:00] VITALS: BP_SYST 144
[2020-08-21] MEDS: DIVALPROEX SODIUM 500 MG TABLET( DEPAKOTE) PO SCH (20:42)
[2020-08-22 00:23] VITALS: BP_SYST 147
[2020-08-22] MEDS: INSULIN REGULAR, HUMAN 100 UNITS/ML, 10 ML VIAL (humuLIN R) SUBCUT PRN ×4 (00:29→23:33)
[2020-08-22 06:20] LABS: BASOPHILS % (AUTO) 0.5 % (0.0-2.0); EOSINOPHILS # (AUTO) 0.3 K/uL (0.0-0.4); EOSINOPHILS % (AUTO) 4.3 % (0.0-4.0); HEMOGLOBIN 11.9 g/dL (12.0-16.0); LYMPHOCYTES # (AUTO) 1.2 K/uL (1.0-5.5); LYMPHOCYTES % (AUTO) 17.1 % (20.5-51.5); MEAN CORPUSCULAR HEMOGLOBIN 31 pg (27-31); MEAN CORPUSCULAR HGB CONC 33 % (32-36); MEAN CORPUSCULAR VOLUME 93 fL (79.0-98.0); MONOCYTES # (AUTO) 0.6 K/uL (0.0-1.0); MONOCYTES % (AUTO) 8.8 % (1.7-9.3); NEUTROPHILS # (AUTO) 4.9 K/uL (1.8-7.7); NEUTROPHILS % (AUTO) 69.3 % (40.0-70.0); PLATELET COUNT (AUTO) 117 K/uL (130-430); RED BLOOD CELL COUNT(AUTO) 3.88 MIL/uL (4.2-6.2); RED CELL DISTRIBUTION WIDTH 14.4 % (9.0-15.0)
[2020-08-22 06:40] LABS: ALANINE AMINOTRANSFERASE 33 U/L (12-78); ALBUMIN 2.4 g/dL (3.4-4.8); ANION GAP 3 (5-15); ASPARTATE AMINOTRANSFERASE 31 U/L (10-37); CALCIUM 8.2 mg/dL (8.4-11.0); CHLORIDE 103 mmol/L (98-107); CREATININE 1.32 mg/dL (0.55-1.30); GLUCOSE 126 mg/dL (70-99); PHOSPHORUS 4.2 mg/dL (2.7-4.5); POTASSIUM 4.8 mmol/L (3.5-5.1); SODIUM SERUM 136 mmol/L (136-145); TOTAL BILIRUBIN 0.3 mg/dL (0.0-1.0); UREA NITROGEN, BLOOD 50 mg/dL (8-21)
[2020-08-22] MEDS: FUROSEMIDE 40 MG TABLET PO SCH ×2 (06:58→18:00)
[2020-08-22] MEDS: IPRATROPIUM BROM 0.5 MG/2.5 ML VIAL.NEB (ATROVENT) INH SCH ×3 (07:28→16:00)
[2020-08-22] MEDS: ALBUTEROL SULFATE 0.083% 2.5 MG/3 ML VIAL.NEB INH SCH ×3 (07:29→16:00)
[2020-08-22 07:40] VITALS: BP_SYST 118
[2020-08-22] MEDS: BALSAM PERU/CASTOR OIL 60 GM OINT...G. TP SCH (09:00)
[2020-08-22] MEDS: lisinopriL 20 MG TABLET PO SCH (09:09)
[2020-08-22] MEDS: MUPIROCIN 2% TOPICAL OINTMENT 22 GM NS SCH ×2 (09:09→22:20)
[2020-08-22] MEDS: DIVALPROEX SODIUM 250 MG TABLET(DEPAKOTE) PO SCH (09:09)
[2020-08-22] MEDS: QUEtiapine FUMARATE 100 MG TABLET PO SCH ×4 (09:10→22:20)
[2020-08-22] MEDS: CARVEDILOL 25 MG TABLET (COREG) PO SCH ×2 (09:10→22:23)
[2020-08-22 11:20] VITALS: BP_SYST 141
[2020-08-22 15:31] VITALS: BP_SYST 150
[2020-08-22 20:00] VITALS: BP_SYST 121
[2020-08-22] MEDS: DIVALPROEX SODIUM 500 MG TABLET( DEPAKOTE) PO SCH (22:20)
[2020-08-23] VITALS: BP_SYST 105
[2020-08-23] MEDS: INSULIN REGULAR, HUMAN 100 UNITS/ML, 10 ML VIAL (humuLIN R) SUBCUT PRN ×3 (06:38→18:14)
[2020-08-23] MEDS: ALBUTEROL SULFATE 0.083% 2.5 MG/3 ML VIAL.NEB INH SCH ×4 (07:00→20:22)
[2020-08-23] MEDS: IPRATROPIUM BROM 0.5 MG/2.5 ML VIAL.NEB (ATROVENT) INH SCH ×4 (07:00→20:22)
[2020-08-23] MEDS: FUROSEMIDE 40 MG TABLET PO SCH ×2 (07:08→18:05)
[2020-08-23 08:11] VITALS: BP_SYST 126
[2020-08-23] MEDS: MUPIROCIN 2% TOPICAL OINTMENT 22 GM NS SCH (08:50)
[2020-08-23] MEDS: DIVALPROEX SODIUM 250 MG TABLET(DEPAKOTE) PO SCH (08:51)
[2020-08-23] MEDS: QUEtiapine FUMARATE 100 MG TABLET PO SCH ×4 (08:52→20:58)
[2020-08-23] MEDS: CARVEDILOL 25 MG TABLET (COREG) PO SCH ×2 (08:52→20:59)
[2020-08-23] MEDS: lisinopriL 20 MG TABLET PO SCH (08:52)
[2020-08-23] MEDS: BALSAM PERU/CASTOR OIL 60 GM OINT...G. TP SCH (09:00)
[2020-08-23 11:44] VITALS: BP_SYST 106
[2020-08-23 16:00] VITALS: BP_SYST 135
[2020-08-23 20:00] VITALS: BP_SYST 135
[2020-08-23] MEDS: DIVALPROEX SODIUM 500 MG TABLET( DEPAKOTE) PO SCH (20:58)
[2020-08-24] VITALS: BP_SYST 136
[2020-08-24] MEDS: INSULIN REGULAR, HUMAN 100 UNITS/ML, 10 ML VIAL (humuLIN R) SUBCUT PRN ×3 (00:40→17:27)
[2020-08-24] MEDS: ALBUTEROL SULFATE 0.083% 2.5 MG/3 ML VIAL.NEB INH SCH ×6 (02:57→23:35)
[2020-08-24] MEDS: IPRATROPIUM BROM 0.5 MG/2.5 ML VIAL.NEB (ATROVENT) INH SCH ×6 (02:57→23:35)
[2020-08-24 06:31] LABS: ALANINE AMINOTRANSFERASE 31 U/L (12-78); ALBUMIN 2.2 g/dL (3.4-4.8); ANION GAP 4 (5-15); ASPARTATE AMINOTRANSFERASE 30 U/L (10-37); CALCIUM 7.8 mg/dL (8.4-11.0); CHLORIDE 104 mmol/L (98-107); CREATININE 1.26 mg/dL (0.55-1.30); GLUCOSE 94 mg/dL (70-99); POTASSIUM 4.6 mmol/L (3.5-5.1); SODIUM SERUM 138 mmol/L (136-145); TOTAL BILIRUBIN 0.2 mg/dL (0.0-1.0); UREA NITROGEN, BLOOD 44 mg/dL (8-21)
[2020-08-24] MEDS: FUROSEMIDE 40 MG TABLET PO SCH ×2 (06:31→17:24)
[2020-08-24 06:51] LABS: BASOPHILS % (AUTO) 0.7 % (0.0-2.0); EOSINOPHILS # (AUTO) 0.2 K/uL (0.0-0.4); EOSINOPHILS % (AUTO) 4.7 % (0.0-4.0); HEMATOCRIT 32.9 % (36-48); LYMPHOCYTES # (AUTO) 1.1 K/uL (1.0-5.5); LYMPHOCYTES % (AUTO) 24.4 % (20.5-51.5); MEAN CORPUSCULAR HEMOGLOBIN 31 pg (27-31); MEAN CORPUSCULAR HGB CONC 33 % (32-36); MEAN CORPUSCULAR VOLUME 92 fL (79.0-98.0); MONOCYTES # (AUTO) 0.5 K/uL (0.0-1.0); MONOCYTES % (AUTO) 11.6 % (1.7-9.3); NEUTROPHILS # (AUTO) 2.7 K/uL (1.8-7.7); NEUTROPHILS % (AUTO) 58.6 % (40.0-70.0); PLATELET COUNT (AUTO) 87 K/uL (130-430); RED BLOOD CELL COUNT(AUTO) 3.57 MIL/uL (4.2-6.2); RED CELL DISTRIBUTION WIDTH 14.3 % (9.0-15.0); WHITE BLOOD COUNT (AUTO) 4.6 K/uL (4.8-10.8)
[2020-08-24 08:00] VITALS: BP_SYST 118
[2020-08-24] MEDS: DIVALPROEX SODIUM 250 MG TABLET(DEPAKOTE) PO SCH (08:07)
[2020-08-24] MEDS: lisinopriL 20 MG TABLET PO SCH (08:07)
[2020-08-24] MEDS: QUEtiapine FUMARATE 100 MG TABLET PO SCH ×4 (08:07→21:49)
[2020-08-24] MEDS: CARVEDILOL 25 MG TABLET (COREG) PO SCH ×2 (08:08→21:48)
[2020-08-24] MEDS: BALSAM PERU/CASTOR OIL 60 GM OINT...G. TP SCH (08:16)
[2020-08-24 11:56] VITALS: BP_SYST 109
[2020-08-24 14:29] VITALS: BP_SYST 109
[2020-08-24 19:00] VITALS: BP_SYST 120
[2020-08-24 20:06] VITALS: BP_SYST 120
[2020-08-24] MEDS: DIVALPROEX SODIUM 500 MG TABLET( DEPAKOTE) PO SCH (21:49)
[2020-08-25] VITALS: BP_SYST 136
[2020-08-25] MEDS: INSULIN REGULAR, HUMAN 100 UNITS/ML, 10 ML VIAL (humuLIN R) SUBCUT PRN ×5 (00:29→23:45)
[2020-08-25] MEDS: IPRATROPIUM BROM 0.5 MG/2.5 ML VIAL.NEB (ATROVENT) INH SCH ×4 (03:00→16:52)
[2020-08-25] MEDS: ALBUTEROL SULFATE 0.083% 2.5 MG/3 ML VIAL.NEB INH SCH ×4 (03:00→16:52)
[2020-08-25] MEDS: FUROSEMIDE 40 MG TABLET PO SCH ×2 (06:26→18:00)
[2020-08-25 08:00] VITALS: BP_SYST 111
[2020-08-25] MEDS: QUEtiapine FUMARATE 100 MG TABLET PO SCH ×4 (08:36→21:45)
[2020-08-25] MEDS: DIVALPROEX SODIUM 250 MG TABLET(DEPAKOTE) PO SCH (08:36)
[2020-08-25] MEDS: BALSAM PERU/CASTOR OIL 60 GM OINT...G. TP SCH (08:37)
[2020-08-25] MEDS: CARVEDILOL 25 MG TABLET (COREG) PO SCH ×2 (08:37→21:45)
[2020-08-25] MEDS: lisinopriL 20 MG TABLET PO SCH (08:37)
[2020-08-25 12:10] VITALS: BP_SYST 129
[2020-08-25 16:06] VITALS: BP_SYST 124
[2020-08-25 20:00] VITALS: BP_SYST 142
[2020-08-25] MEDS: DIVALPROEX SODIUM 500 MG TABLET( DEPAKOTE) PO SCH (21:45)
[2020-08-26] VITALS: BP_SYST 159
[2020-08-26] MEDS: ALBUTEROL SULFATE 0.083% 2.5 MG/3 ML VIAL.NEB INH SCH ×5 (00:16→19:28)
[2020-08-26] MEDS: IPRATROPIUM BROM 0.5 MG/2.5 ML VIAL.NEB (ATROVENT) INH SCH ×5 (00:17→19:28)
[2020-08-26] MEDS: FUROSEMIDE 40 MG TABLET PO SCH ×2 (05:06→17:42)
[2020-08-26] MEDS: INSULIN REGULAR, HUMAN 100 UNITS/ML, 10 ML VIAL (humuLIN R) SUBCUT PRN ×3 (05:10→17:43)
[2020-08-26 08:00] VITALS: BP_SYST 152
[2020-08-26] MEDS: DIVALPROEX SODIUM 250 MG TABLET(DEPAKOTE) PO SCH (08:47)
[2020-08-26] MEDS: QUEtiapine FUMARATE 100 MG TABLET PO SCH ×3 (08:47→17:39)
[2020-08-26] MEDS: CARVEDILOL 25 MG TABLET (COREG) PO SCH (08:48)
[2020-08-26] MEDS: lisinopriL 20 MG TABLET PO SCH (08:48)
[2020-08-26] MEDS: BALSAM PERU/CASTOR OIL 60 GM OINT...G. TP SCH (08:55)
[2020-08-26 12:20] VITALS: BP_SYST 115
[2020-08-26 16:20] VITALS: BP_SYST 124
[2020-08-26 16:26] VITALS: BP_SYST 108
[2020-08-26 20:00] VITALS: BP_SYST 134
== END 2020-08-26 21:00 | DRG 291 ==
LOC: SED 05:16 → STU 08:26 → SMU 08-10 12:25
PROVIDERS: ADMIT Internal Medicine Hospice and Palliative Medicine; ATTEND Internal Medicine Hospice and Palliative Medicine
PROC: 4A10X4Z Monitoring of Central Nervous Electrical Activity, External Approach (ICD-10-PCS; principal; 2020-08-04)
DX: I13.0 Hypertensive heart and chronic kidney disease with heart failure and stage 1 through stage 4 chronic kidney disease, or unspecified chronic kidney disease (principal); G93.41 Metabolic encephalopathy; J96.21 Acute and chronic respiratory failure with hypoxia; I50.23 Acute on chronic systolic (congestive) heart failure; E44.0 Moderate protein-calorie malnutrition; N17.9 Acute kidney failure, unspecified; F31.9 Bipolar disorder, unspecified; I34.0 Nonrheumatic mitral (valve) insufficiency; F03.90 Unspecified dementia, unspecified severity, without behavioral disturbance, psychotic disturbance, mood disturbance, and anxiety; Z20.822 Contact with and (suspected) exposure to COVID-19; N18.30 Chronic kidney disease, stage 3 unspecified; E11.22 Type 2 diabetes mellitus with diabetic chronic kidney disease; Z68.20 Body mass index [BMI] 20.0-20.9, adult; Z86.73 Personal history of transient ischemic attack (TIA), and cerebral infarction without residual deficits
CPT/HCPCS: 36415; 70450-TC; 70551; 71045; 72125-TC; 73502; 73560-TC; 76376; 80048; 80053; 80061; 80164-TC; 81000-TC; 82607; 82962; 83036; 83605; 83735-TC; 83880; 84100-TC; 84443-TC; 84484; 85025; 85610-TC; 85730-TC; 87040-TC; 87081; 87086; 92610-GN; 93005; 93306; 94640; 94760; 95816; 96365; 96375; 97110-GP; 97112-GP; 97116-GP; 97163; 97530-GP; G0378; J1200; J1815; J1940; J2060; J2405; J2543; J3010; J3370; J7613; U0003